=== PATIENT | male | born 1990 | race Caucasian/White ===

== ENCOUNTER 2016-06-03 01:16 | Emergency (ER) | payer OTHER ==
[~2016-06-03] VITALS: Ht 185.4 cm; Wt 75.0 kg
[~2016-06-03 01:16] MED LIST: PARO10S PO; SERO100T PO; ZYPR10TA PO; ZYPR10TA9 PO
[2016-06-03] MEDS ORDERED: SERO400T PO (01:29)
[2016-06-03] MEDS ORDERED: ZYPR10TA PO (01:29)
[2016-06-03] MEDS ORDERED: PAXI10TA2 PO (01:29)
[2016-06-03 01:33] VITALS: BP 118/58; PULSE 68; RESP 16; TEMP 98; O2SAT 98
[2016-06-03 01:48] LABS: AUTOMATED NEUTROPHIL # 1.9 TH/MM3 (1.8-7.7); BASOPHIL % 0.7 % (0.0-2.0); EOSINOPHIL # 0.4 TH/MM3 (0-0.4); EOSINOPHIL % 8.4 % (0.0-4.0); HEMATOCRIT 39.4 % (39.0-51.0); HEMO FLAGS DIFF FINAL; LYMPH % 46.8 % (9.0-44.0); LYMPHOCYTE # 2.4 TH/MM3 (1.0-4.8); MEAN CELL VOLUME 91.4 FL (80.0-100.0); MEAN CORPUSCULAR HEMOGLOBIN 32.7 PG (27.0-34.0); MEAN CORPUSCULAR HGB CONC 35.7 % (32.0-36.0); MONO % 7.4 % (0.0-8.0); NEUT % 36.7 % (16.0-70.0); PLATELET COUNT 196 TH/MM3 (150-450); RED BLOOD COUNT 4.32 MIL/MM3 (4.50-5.90); RED CELL DISTRIBUTION WIDTH 12.4 % (11.6-17.2); WHITE BLOOD COUNT 5.2 TH/MM3 (4.0-11.0)
[2016-06-03 02:03] LABS: ALT (GPT) 43 U/L (12-78); ANION GAP 7 MEQ/L (5-15); AST (GOT) 17 U/L (15-37); BLOOD UREA NITROGEN 13 MG/DL (7-18); CHLORIDE 108 MEQ/L (98-107); GLOMERULAR FILTRATION RATE 105 ML/MIN (>89); POTASSIUM 3.7 MEQ/L (3.5-5.1); SODIUM (NA) 143 MEQ/L (136-145)
[2016-06-03 02:05] LABS: ALKALINE PHOSPHATASE 69 U/L (45-117); TOTAL BILIRUBIN ADULT 0.2 MG/DL (0.2-1.0)
[2016-06-03 02:25] LABS: AMPHETAMINE, URINE POS (NEG); BARBITURATES, URINE NEG (NEG); COCAINE, URINE NEG (NEG)
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
[2016-06-03] MEDS ORDERED: OLANZapine IM 10 MG VIAL IM ONE (02:45)
[2016-06-03 03:08] VITALS: BP 131/65; PULSE 71; RESP 18
[2016-06-03 06:29] VITALS: BP 120/64; PULSE 75; RESP 18; O2SAT 97
[2016-06-03 11:12] VITALS: BP 107/57; PULSE 69; RESP 18; O2SAT 99
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
[2016-06-03] MEDS ORDERED: OLANZapine 10 MG TAB PO SCH (21:00)
[2016-06-03 22:24] VITALS: BP 122/56; PULSE 70; RESP 18; O2SAT 97
[2016-06-04 01:57] VITALS: BP 123/58; PULSE 72; RESP 18; O2SAT 100
[2016-06-04 06:36] VITALS: BP 100/53; PULSE 61; RESP 18; TEMP 98.3; O2SAT 98
[2016-06-04 10:38] VITALS: BP 136/63; PULSE 61; RESP 16; O2SAT 99
[2016-06-04 14:52] VITALS: BP 118/60; PULSE 72; RESP 18; TEMP 97.8; O2SAT 97
[2016-06-04 16:33] VITALS: BP 141/73; PULSE 72; RESP 18; TEMP 97.3; O2SAT 95
== END 2016-06-04 17:11 ==
LOC: NEPA 01:16 → NEPJ 06-04 17:11
DX: F25.0 Schizoaffective disorder, bipolar type (principal); F19.20 Other psychoactive substance dependence, uncomplicated; J45.909 Unspecified asthma, uncomplicated; F17.210 Nicotine dependence, cigarettes, uncomplicated
CPT/HCPCS: 80053; 80307; 80320; 85025; 96372

== ENCOUNTER 2016-06-10 23:28 | Emergency (ER) | payer OTHER ==
[~2016-06-10 23:28] MED LIST changes: -PARO10S PO; +PAXI10TA2 PO; -SERO100T PO; +SERO400T PO; -ZYPR10TA9 PO
[2016-06-10 23:33] VITALS: BP 132/86; PULSE 93; RESP 18; TEMP 97.8; O2SAT 99
[2016-06-11] MEDS ORDERED: HALOPERIDOL LACTATE 5 MG/ML AMP IM ONE (03:00)
[2016-06-11] MEDS ORDERED: diphenhydrAMINE HCL 50 MG/ML VIAL IM ONE (03:00)
[2016-06-11 03:25] VITALS: BP 133/81; PULSE 97; RESP 22; TEMP 98.9; O2SAT 99
[2016-06-11 03:28] LABS: AUTOMATED NEUTROPHIL # 3.7 TH/MM3 (1.8-7.7); BASOPHIL % 0.6 % (0.0-2.0); EOSINOPHIL # 0.5 TH/MM3 (0-0.4); HEMATOCRIT 39.3 % (39.0-51.0); HEMO FLAGS DIFF FINAL; LYMPH % 28.5 % (9.0-44.0); MEAN CELL VOLUME 91.8 FL (80.0-100.0); MEAN CORPUSCULAR HEMOGLOBIN 32.6 PG (27.0-34.0); MEAN CORPUSCULAR HGB CONC 35.5 % (32.0-36.0); MONO % 11.4 % (0.0-8.0); NEUT % 52.5 % (16.0-70.0); PLATELET COUNT 207 TH/MM3 (150-450); RED BLOOD COUNT 4.28 MIL/MM3 (4.50-5.90); RED CELL DISTRIBUTION WIDTH 12.6 % (11.6-17.2); WHITE BLOOD COUNT 7.1 TH/MM3 (4.0-11.0)
--- NOTE | 2016-06-11 03:51 | RADRPT ---
EXAM DATE/TIME: 06/11/2016 03:30 [facility] COMPARISON: No previous studies available for comparison. INDICATIONS : Lower back pain after fall. MEDICAL HISTORY : None. SURGICAL HISTORY : None. ENCOUNTER: Initial ACUITY: 1 day PAIN SCORE: 5/10 LOCATION: Bilateral lower back. FINDINGS: Two view examination was performed. There are five non-rib bearing vertebral bodies. The vertebral bodies are in normal alignment without evidence of subluxation or scoliosis. The disc spaces are lucia ntained. The pedicles are intact. Bony mineralization is normal. No fracture is identified. CONCLUSION: Unremarkable exam. Ed Cooley MD on June 11, 2016 at 3:49 Board Certified Radiologist. This report was verified electronically.
--- NOTE | 2016-06-11 03:51 | RADRPT ---
EXAM DATE/TIME: 06/11/2016 03:29 [facility] COMPARISON: No previous studies available for comparison. INDICATIONS : Upper back pain after fall. MEDICAL HISTORY : None. SURGICAL HISTORY : None. ENCOUNTER: Initial ACUITY: 1 day PAIN SCORE: 5/10 LOCATION: Bilateral thoracic. FINDINGS: There is normal alignment of the thoracic vertebral bodies. Vertebral body height is maintained. No evidence of fracture or subluxation. Pedicles are intact at all levels. The paravertebral reflecti ons are not thickened. CONCLUSION: Unremarkable exam. Ed Cooley MD on June 11, 2016 at 3:49 Board Certified Radiologist. This report was verified electronically.
[2016-06-11 03:59] LABS: ALT (GPT) 65 U/L (12-78); ANION GAP 7 MEQ/L (5-15); AST (GOT) 44 U/L (15-37); BLOOD UREA NITROGEN 15 MG/DL (7-18); CHLORIDE 107 MEQ/L (98-107); GLOMERULAR FILTRATION RATE 91 ML/MIN (>89); POTASSIUM 3.5 MEQ/L (3.5-5.1); SODIUM (NA) 142 MEQ/L (136-145)
[2016-06-11 04:01] LABS: ALKALINE PHOSPHATASE 68 U/L (45-117); TOTAL BILIRUBIN ADULT 0.7 MG/DL (0.2-1.0)
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
--- NOTE | 2016-06-11 04:43 | RADRPT ---
EXAM DATE/TIME: 06/11/2016 04:20 [facility] COMPARISON: CT BRAIN W/O CONTRAST, September 10, 2015, 22:03. INDICATIONS : Fall, contusion to forehead. RADIATION DOSE: 42.06 CTDIvol (mGy) MEDICAL HISTORY : None SURGICAL HISTORY : None. ENCOUNTER: Initial ACUITY: 1 day PAIN SCALE: 0/10 LOCATION: cranial TECHNIQUE: Multiple contiguous axial images were obtained of the head. Using automated exposure control and adj ustment of the mA and/or kV according to patient size, radiation dose was kept as low as reasonably a chievable to obtain optimal diagnostic quality images. FINDINGS: CEREBRUM: The ventricles are normal for age. No evidence of midline shift, mass lesion, hemorrhage or acute in farction. No extra-axial fluid collections are seen. POSTERIOR FOSSA: The cerebellum and brainstem are intact. The 4th ventricle is midline. The cerebellopontine angle i s unremarkable. EXTRACRANIAL: The visualized portion of the orbits is intact. Tiny foreign body in the soft tissues along the right forehead. This was present on the prior study and remains unchanged. There is soft tissue swelling a long the mid forehead. SKULL: The calvaria is intact. No evidence of skull fracture. CONCLUSION: 1. Unremarkable and stable CT scan of the brain compared to the prior study. 2. Stable tiny foreign body in the soft tissues along the right forehead. 3. Soft tissue swelling right forehead. Ed Cooley MD on June 11, 2016 at 4:40 Board Certified Radiologist. This report was verified electronically.
--- NOTE | 2016-06-11 04:48 | RADRPT ---
EXAM DATE/TIME: 06/11/2016 04:20 [place] COMPARISON: CT CERVICAL SPINE W/O CONTRAST, January 19, 2015, 14:15. INDICATIONS : Fall, neck pain. RADIATION DOSE: 25.52 CTDIvol (mGy) MEDICAL HISTORY : None SURGICAL HISTORY : None. ENCOUNTER: Initial ACUITY: 1 day PAIN SCALE: 0/10 LOCATION: neck TECHNIQUE: Volumetric scanning of the cervical spine was performed. Multiplanar reconstructions in the sagittal, coronal and oblique axial planes were performed. Using automated exposure control and adjustment o f the mA and/or kV according to patient size, radiation dose was kept as low as reasonably achievable to obtain optimal diagnostic quality images. FINDINGS: VERTEBRAE: Normal vertebral body height. No acute bony fracture. There is evidence of reversed lordosis. This is stable compared to the prior study. There continues to be some mild curvature of the cervical spine to the left. Stable compared to prior study. No significant extradural defects are seen in the spinal canal. The neural foramina appear patent. ALIGNMENT: No evidence of subluxation. Compared to the prior exam from 2014 there are no new or significant changes with the overall appeara nce of the cervical spine. CONCLUSION: Stable CT scan of the cervical spine compared to the prior study. Ed Cooley MD on June 11, 2016 at 4:42 Board Certified Radiologist. This report was verified electronically.
[2016-06-11 08:00] VITALS: BP 131/79; PULSE 80; RESP 16; O2SAT 98
[2016-06-11 12:20] VITALS: BP 127/81; PULSE 77; RESP 14; O2SAT 99
[2016-06-11 17:18] LABS: AMPHETAMINE, URINE POS (NEG); BARBITURATES, URINE NEG (NEG); COCAINE, URINE NEG (NEG)
[2016-06-11 18:59] VITALS: BP 102/57; PULSE 68; RESP 18; O2SAT 97
== END 2016-06-11 19:44 ==
LOC: NEPE 23:28 → NEPJ 06-11 19:44
DX: F23 Brief psychotic disorder (principal); S00.83XA Contusion of other part of head, initial encounter; R51 Headache; M54.2 Cervicalgia; M54.5 Low back pain; R45.1 Restlessness and agitation; F17.200 Nicotine dependence, unspecified, uncomplicated; Z87.09 Personal history of other diseases of the respiratory system; Z86.69 Personal history of other diseases of the nervous system and sense organs; Z86.59 Personal history of other mental and behavioral disorders; X58.XXXA Exposure to other specified factors, initial encounter
CPT/HCPCS: 70450; 72072; 72100; 72125; 80053; 80307; 80320; 85025; 96372; 99284; J1200; J1630

== ENCOUNTER 2016-06-16 18:05 | Inpatient (IN) | payer OTHER ==
[~2016-06-16] VITALS: Ht 185.4 cm; Wt 106.3 kg
--- NOTE | 2016-06-16 18:39 | PD ---
HPI Chief Complaint: psychiatric evaluation Time Seen by Provider: 18:37 Travel History International Travel<30 days: No Contact w/Intl Traveler<30days: No History of Present Illness HPI Patient comes in under an ex parte for psychiatric evaluation. Patient states he has been feeling very stressed and does not feel like he is on the correct meds. Patient denies any medical complaints currently other than stress. Denies any chest pain, shortness of breath, fever, abdominal pain, or loss change in bowel or bladder. Denies any homicidal or suicidal ideations. PFSH Past Medical History Anxiety: Yes Depression: Yes Diminished Hearing: No Psychiatric: Yes (Schizoaffective Disorder) Respiratory: Yes (ASTHMA) Immunizations Current: Yes Schizophrenia: Yes Past Surgical History Eye Surgery: Yes (LEFT EYE) Social History Alcohol Use: No (Denies.) Tobacco Use: Yes (1 PPD) Substance Use: Yes (States drug of choice is Meth. ) Allergies-Medications (Allergen,Severity, Reaction): Coded Allergies: Milk (Verified Allergy, Severe, 06/16/16) Lactose (Verified Allergy, Unknown, 06/16/16) Lactose Intollerant per paperwork from [facility]. Uncoded Allergies: Fish (Allergy, Unknown, 06/11/16) No Fish, per paperwork sent by [facility]. Reported Meds & Prescriptions Reported Meds & Active Scripts Active Reported Paxil (Paroxetine HCl) 10 Mg Tab 10 Mg PO DAILY Seroquel (Quetiapine Fumarate) 400 Mg Tab 400 Mg PO HS Zyprexa (Olanzapine) 10 Mg Tab 10 Mg PO HS Review of Systems Except as stated in HPI: all other systems reviewed are Neg Physical Exam Narrative GENERAL: Well-developed, overly nourished, in no acute distress, and non-ill appearing. SKIN: Warm and dry. HEAD: Atraumatic. Normocephalic. EYES: Pupils equal and round. EOMI. No scleral icterus. No injection or drainage. ENT: No nasal bleeding or discharge. Mucous membranes pink and moist. NECK: Trachea midline. Supple. No nuclear rigidity. CARDIOVASCULAR: Regular rate and rhythm. No murmur appreciated. RESPIRATORY: No accessory muscle use. No respiratory distress. Clear to auscultation. Breath sounds equal bilaterally. MUSCULOSKELETAL: No obvious deformities. No clubbing. No cyanosis. No edema. Full range of motion. NEUROLOGICAL: Awake and alert. No obvious cranial nerve deficits. Motor grossly within normal limits. Normal speech. PSYCHIATRIC: Appropriate mood and affect. Data Data Last Documented VS Vital Signs Date Time Temp Pulse Resp B/P Pulse Ox O2 Delivery O2 Flow Rate FiO2 06/16/16 19:28 98 06/16/16 19:27 15 139/84 98 Room Air 06/16/16 19:00 97.9 Orders Complete Blood Count With Diff (06/16/16 18:35) Comprehensive Metabolic Panel (06/16/16 18:35) Drug Screen, Random Urine (06/16/16 18:35) Alcohol (Ethanol) (06/16/16 18:35) Salicylates (Aspirin) (06/16/16 18:35) Tylenol (Acetaminophen) (06/16/16 18:35) Psych Screen (06/16/16 18:35) Labs Laboratory Tests Test 06/16/16 06/16/16 19:00 19:05 Urine Opiates Screen NEG Urine Barbiturates Screen NEG Urine Amphetamines Screen POS Urine Benzodiazepines Screen NEG Urine Cocaine Screen NEG Urine Cannabinoids Screen NEG White Blood Count 7.8 TH/MM3 Red Blood Count 4.83 MIL/MM3 Hemoglobin 15.8 GM/DL Hematocrit 44.9 % Mean Corpuscular Volume 92.9 FL Mean Corpuscular Hemoglobin 32.6 PG Mean Corpuscular Hemoglobin 35.2 % Concent Red Cell Distribution Width 12.7 % Platelet Count 255 TH/MM3 Mean Platelet Volume 8.8 FL Neutrophils (%) (Auto) 60.7 % Lymphocytes (%) (Auto) 26.5 % Monocytes (%) (Auto) 7.7 % Eosinophils (%) (Auto) 4.4 % Basophils (%) (Auto) 0.7 % Neutrophils # (Auto) 4.7 TH/MM3 Lymphocytes # (Auto) 2.1 TH/MM3 Monocytes # (Auto) 0.6 TH/MM3 Eosinophils # (Auto) 0.3 TH/MM3 Basophils # (Auto) 0.1 TH/MM3 CBC Comment DIFF FINAL Differential Comment Sodium Level 139 MEQ/L Potassium Level 3.8 MEQ/L Chloride Level 101 MEQ/L Carbon Dioxide Level 27.3 MEQ/L Anion Gap 11 MEQ/L Blood Urea Nitrogen 20 MG/DL Creatinine 1.05 MG/DL Estimat Glomerular Filtration 85 ML/MIN Rate Random Glucose 86 MG/DL Calcium Level 9.3 MG/DL Total Bilirubin 0.5 MG/DL Aspartate Amino Transf 25 U/L (AST/SGOT) Alanine Aminotransferase 58 U/L (ALT/SGPT) Alkaline Phosphatase 80 U/L Total Protein 7.9 GM/DL Albumin 4.9 GM/DL Salicylates Level 5.5 MG/DL Acetaminophen Level LESS THAN 2.0 MCG/ML Ethyl Alcohol Level LESS THAN 3 MG/DL MDM Medical Decision Making Medical Screen Exam Complete: Yes Emergency Medical Condition: Yes Differential Diagnosis Schizophrenia, substance abuse, acute psychosis, amphetamine abuse, drug induced psychosis, other Narrative Course Patient was seen and examined. Labs were obtained and reviewed. Patient medically cleared for further treatment and evaluation by psych. Final disposition per psych. Diagnosis Primary Impression: Schizoaffective disorder Qualified Code: F25.9 - Schizoaffective disorder, unspecified type Condition: Stable Eudardo Adrian Jun 16, 2016 18:39
[2016-06-16 19:00] VITALS: BP 138/73; PULSE 98; RESP 16; TEMP 97.9; O2SAT 100
[2016-06-16 19:24] LABS: AUTOMATED NEUTROPHIL # 4.7 TH/MM3 (1.8-7.7); BASOPHIL # 0.1 TH/MM3 (0-0.2); BASOPHIL % 0.7 % (0.0-2.0); EOSINOPHIL # 0.3 TH/MM3 (0-0.4); EOSINOPHIL % 4.4 % (0.0-4.0); HEMATOCRIT 44.9 % (39.0-51.0); HEMO FLAGS DIFF FINAL; LYMPH % 26.5 % (9.0-44.0); LYMPHOCYTE # 2.1 TH/MM3 (1.0-4.8); MEAN CELL VOLUME 92.9 FL (80.0-100.0); MEAN CORPUSCULAR HEMOGLOBIN 32.6 PG (27.0-34.0); MEAN CORPUSCULAR HGB CONC 35.2 % (32.0-36.0); MONO % 7.7 % (0.0-8.0); NEUT % 60.7 % (16.0-70.0); PLATELET COUNT 255 TH/MM3 (150-450); RED BLOOD COUNT 4.83 MIL/MM3 (4.50-5.90); RED CELL DISTRIBUTION WIDTH 12.7 % (11.6-17.2); WHITE BLOOD COUNT 7.8 TH/MM3 (4.0-11.0)
[2016-06-16 19:27] VITALS: BP 139/84; PULSE 90; RESP 15; O2SAT 98
[2016-06-16 19:31] LABS: AMPHETAMINE, URINE POS (NEG); BARBITURATES, URINE NEG (NEG); COCAINE, URINE NEG (NEG)
[2016-06-16 19:39] LABS: ANION GAP 11 MEQ/L (5-15)
[2016-06-16 19:47] LABS: ACETAMINOPHEN LESS THAN 2.0 MCG/ML (10.0-30.0); ALKALINE PHOSPHATASE 80 U/L (45-117); ALT (GPT) 58 U/L (12-78); AST (GOT) 25 U/L (15-37); BICARBONATE 27.3 MEQ/L (21.0-32.0); BLOOD UREA NITROGEN 20 MG/DL (7-18); CHLORIDE 101 MEQ/L (98-107); GLOMERULAR FILTRATION RATE 85 ML/MIN (>89); POTASSIUM 3.8 MEQ/L (3.5-5.1); SODIUM (NA) 139 MEQ/L (136-145); TOTAL BILIRUBIN ADULT 0.5 MG/DL (0.2-1.0)
--- NOTE | 2016-06-16 20:35 | PD ---
Physical Exam Date Seen by Provider: Jun 16, 2016 Data Data Last Documented VS Vital Signs Date Time Temp Pulse Resp B/P Pulse Ox O2 Delivery O2 Flow Rate FiO2 06/16/16 19:28 98 06/16/16 19:27 15 139/84 98 Room Air 06/16/16 19:00 97.9 Orders Complete Blood Count With Diff (06/16/16 18:35) Comprehensive Metabolic Panel (06/16/16 18:35) Drug Screen, Random Urine (06/16/16 18:35) Alcohol (Ethanol) (06/16/16 18:35) Salicylates (Aspirin) (06/16/16 18:35) Tylenol (Acetaminophen) (06/16/16 18:35) Psych Screen (06/16/16 18:35) Labs Laboratory Tests Test 06/16/16 06/16/16 19:00 19:05 Urine Opiates Screen NEG Urine Barbiturates Screen NEG Urine Amphetamines Screen POS Urine Benzodiazepines Screen NEG Urine Cocaine Screen NEG Urine Cannabinoids Screen NEG White Blood Count 7.8 TH/MM3 Red Blood Count 4.83 MIL/MM3 Hemoglobin 15.8 GM/DL Hematocrit 44.9 % Mean Corpuscular Volume 92.9 FL Mean Corpuscular Hemoglobin 32.6 PG Mean Corpuscular Hemoglobin 35.2 % Concent Red Cell Distribution Width 12.7 % Platelet Count 255 TH/MM3 Mean Platelet Volume 8.8 FL Neutrophils (%) (Auto) 60.7 % Lymphocytes (%) (Auto) 26.5 % Monocytes (%) (Auto) 7.7 % Eosinophils (%) (Auto) 4.4 % Basophils (%) (Auto) 0.7 % Neutrophils # (Auto) 4.7 TH/MM3 Lymphocytes # (Auto) 2.1 TH/MM3 Monocytes # (Auto) 0.6 TH/MM3 Eosinophils # (Auto) 0.3 TH/MM3 Basophils # (Auto) 0.1 TH/MM3 CBC Comment DIFF FINAL Differential Comment Sodium Level 139 MEQ/L Potassium Level 3.8 MEQ/L Chloride Level 101 MEQ/L Carbon Dioxide Level 27.3 MEQ/L Anion Gap 11 MEQ/L Blood Urea Nitrogen 20 MG/DL Creatinine 1.05 MG/DL Estimat Glomerular Filtration 85 ML/MIN Rate Random Glucose 86 MG/DL Calcium Level 9.3 MG/DL Total Bilirubin 0.5 MG/DL Aspartate Amino Transf 25 U/L (AST/SGOT) Alanine Aminotransferase 58 U/L (ALT/SGPT) Alkaline Phosphatase 80 U/L Total Protein 7.9 GM/DL Albumin 4.9 GM/DL Salicylates Level 5.5 MG/DL Acetaminophen Level LESS THAN 2.0 MCG/ML Ethyl Alcohol Level LESS THAN 3 MG/DL MDM Medical Record Reviewed: Yes Supervised Visit with EVELYNE: Yes Narrative Course I, Dr. Wooten, have reviewed the advance practice practitioner's documentation and am in agreement, met with the patient face to face, made the diagnosis, and the medical decision making was done by me. *My assessment and Findings: Patient presents to ER under Ex Parte, patient reports that he has been very stressed out lately. Patient reports that he was told to come to the emergency room for psychiatric evaluation. Patient currently with no suicidal or homicidal ideations. Diagnosis Primary Impression: Schizoaffective disorder Qualified Code: F25.9 - Schizoaffective disorder, unspecified type Condition: Stable Karlene Wooten DO Jun 16, 2016 20:34
[2016-06-16 23:41] VITALS: BP 162/92; PULSE 95; RESP 19; TEMP 97.6; O2SAT 96
[2016-06-17 02:13] VITALS: BP 132/69; PULSE 84; RESP 18; O2SAT 99
[2016-06-17] MEDS ORDERED: OLANZapine 10 MG TAB PO ONE (05:30)
[2016-06-17 06:46] VITALS: BP 112/64; PULSE 70; RESP 18; TEMP 97.5; O2SAT 98
[2016-06-17] MEDS ORDERED: LORazepam 2 MG TAB PO ONE (13:00)
[2016-06-17 14:40] VITALS: BP 115/58; PULSE 66; RESP 17; O2SAT 98
[2016-06-17] MEDS ORDERED: BENZTROPINE MESYLATE 2 MG/2 ML VIAL IM PRN (15:45)
[2016-06-17] MEDS: NICOTINE 21 MG/24 HR PATCH T-DERMAL SCH (15:45)
[2016-06-17] MEDS ORDERED: ACETAMINOPHEN 325 MG TAB PO PRN (15:45)
[2016-06-17] MEDS ORDERED: ALUMINUM/MAGNESIUM/SIMETH 30 ML CUP PO PRN (15:45)
[2016-06-17] MEDS ORDERED: BENZTROPINE MESYLATE 1 MG TAB PO PRN (15:45)
[2016-06-17] MEDS ORDERED: MAGNESIUM HYDROXIDE SUSP 30 ML CUP PO PRN (15:45)
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
[2016-06-17 16:50] VITALS: BP 129/87; PULSE 82; RESP 18; TEMP 98.5; O2SAT 97
[2016-06-17] MEDS: hydrOXYzine HCL 50 MG TAB PO PRN (18:04)
[2016-06-17] MEDS: QUEtiapine FUMARATE 100 MG TAB PO SCH (21:00)
[2016-06-17] MEDS: diphenhydrAMINE HCL 50 MG CAP PO PRN (22:17)
[2016-06-18 06:48] VITALS: BP 136/78; PULSE 96; RESP 18; TEMP 97.6; O2SAT 98
[2016-06-18 08:21] LABS: HDL CHOLESTEROL 57.6 MG/DL (40.0-60.0); LDL CHOLESTEROL 81 MG/DL (0-99)
[2016-06-18] MEDS: QUEtiapine FUMARATE 100 MG TAB PO SCH ×3 (09:00→21:04)
[2016-06-18] MEDS: REMOVE OLD PATCH T-DERMAL SCH (09:00)
[2016-06-18] MEDS: hydrOXYzine HCL 50 MG TAB PO PRN ×3 (09:04→21:19)
[2016-06-18] MEDS: NICOTINE 21 MG/24 HR PATCH T-DERMAL SCH (09:05)
[2016-06-18] MEDS ORDERED: PNEUMOCOCCAL POLYVALENT INJ 25 MCG/0.5 ML SYR IM ONE (10:00)
[2016-06-18] MEDS ORDERED: INFLUENZA VIRUS VACCINE (QUADRIVALENT) 0.5 ML SYR IM ONE (10:00)
--- NOTE | 2016-06-18 10:38 | HHI.PYPN ---
Subjective Remarks Patient seen and examined with counselor. Chart reviewed. Case discussed with nursing staff. On my examination today, patient seems fairly sleepy although he is able to participate in interview. I ask if he feels overmedicated but he insists that he does not and in fact requests that we titrate his Seroquel. I have explained that this would likely increase his sedation, but the patient feels strongly in favor of a titration of this medication, especially at HS, to target psychotic symptoms. Endorses ongoing AH of "a lot of stuff" but does not describe any CAH. He denies SI/HI. Med-seeking for Ativan. We agree to work on a scheduled, non-habit forming anxiolytic but the patient wants to prioritize titrating Seroquel today. Denies side effects from medications except as above. Review of Systems Other No somatic complaints. Objective Alert: Yes [place]: Person, Place, Date Mood: Anxious Affect: Flat Memory Intact: Comment (Intact on clinical exam) Hallucinations: Auditory (as above) Delusions: No Delusion Type: Other (No delusions) Suicidal: Ideation (Denies SI) Homicidal: Ideation (Denies HI) Insight/Judgement Fair Remarks No motoric abnormalities noted. Thought process linear. Speech within a little slow but otherwise within normal limits for tone and volume. Labs Test 06/18/16 07:22 Triglycerides Level 57 MG/DL Cholesterol Level 150 MG/DL LDL Cholesterol 81 MG/DL HDL Cholesterol 57.6 MG/DL Cholesterol/HDL Ratio 2.60 RATIO Labs reviewed. Vitals/IOs Vital Signs Date Time Temp Pulse Resp B/P Pulse Ox O2 Delivery O2 Flow Rate FiO2 06/18/16 06:48 97.6 96 18 136/78 98 06/17/16 06:46 Room Air Assessment & Plan Problem List: (1) Schizoaffective disorder ICD Code: F25.9 (2) Amphetamine abuse ICD Code: F15.10 Assessment & Plan Titrate Seroquel to 100/150mg per patient preference. Hold Seroquel for sedation. Continue other medications as ordered but to consider, e.g. gabapentin, for anxiety. Continue other care as ordered. Justification for Cont. Inpt. Impairments in reality construction. Risk for decompensation. Medication changes. Discharge Planning Pending psychiatric stabilization Problem Qualifiers (1) Schizoaffective disorder: Qualified Code: F25.0 - Schizoaffective disorder, bipolar type Jorge Poe MD Jun 18, 2016 10:38
[2016-06-18 15:57] LABS: HEMOGLOBIN A1a 1.1 %; HEMOGLOBIN A1b 0.8 %; HEMOGLOBIN Ao 86.9 %; HEMOGLOBIN F 1.3 %; HEMOGLOBIN LA1C 1.8 %; HEMOGLOBIN P3 3.2 %
[2016-06-18] MEDS: diphenhydrAMINE HCL 50 MG CAP PO PRN (21:04)
[2016-06-18 21:51] VITALS: BP 130/70; PULSE 88; RESP 18; TEMP 97.3; O2SAT 95
[2016-06-19 05:48] VITALS: BP 114/76; PULSE 102; RESP 20; TEMP 97.4; O2SAT 99
[2016-06-19] MEDS: hydrOXYzine HCL 50 MG TAB PO PRN ×4 (07:10→23:31)
[2016-06-19] MEDS: NICOTINE 21 MG/24 HR PATCH T-DERMAL SCH (07:51)
[2016-06-19] MEDS: QUEtiapine FUMARATE 100 MG TAB PO SCH ×2 (07:51→20:26)
[2016-06-19] MEDS: REMOVE OLD PATCH T-DERMAL SCH (09:00)
--- NOTE | 2016-06-19 12:33 | HHI.PYPN ---
Subjective Remarks Patient seen and examined. Chart reviewed. Case discussed with nursing staff. On my examination today, patient continues to complain of some cough and cold symptoms. He describes in particular some mild pharyngitis. He denies any SI, HI or AVH. Anxiety level lessening. Patient is pleased with being back on Seroquel. Denies any side effects from medications. Review of Systems Other As above, otherwise no somatic complaints. Objective Alert: Yes [place]: Person, Place, Date Mood: Other (calmer) Affect: Blunted Memory Intact: Comment (Intact on clinical exam) Hallucinations: Other (denies AVH) Delusions: No Delusion Type: Other (No delusions) Suicidal: Ideation (Denies SI) Homicidal: Ideation (Denies HI) Insight/Judgement Fair Remarks Thought process linear. No motoric abnormalities noted. Labs Labs reviewed. No new labs. Vitals/IOs Vital Signs Date Time Temp Pulse Resp B/P Pulse Ox O2 Delivery O2 Flow Rate FiO2 06/19/16 05:48 97.4 102 20 114/76 99 06/17/16 06:46 Room Air Assessment & Plan Problem List: (1) Schizoaffective disorder ICD Code: F25.9 (2) Amphetamine abuse ICD Code: F15.10 Assessment & Plan Patient's somatic complaints are likely indeed related to mild URI, but antipsychotics themselves can sometimes cause rhinitis and pharyngitis and it does seem that patient's physical complaints again after reinitiation of the Seroquel. I will continue current dose of Seroquel for now and monitor. Symptomatic treatment for his physical complaints. I did offer the patient the general medical consultation but he has declined and I do not think that his physical symptoms are so severe as to necessitate a medical consultation at this time. Continue other medications and care as ordered. Justification for Cont. Inpt. Complicating conditions. Anticipate possible ongoing medication adjustments. Discharge Planning Pending psychiatric stabilization. Problem Qualifiers (1) Schizoaffective disorder: Qualified Code: F25.0 - Schizoaffective disorder, bipolar type Jorge Poe MD Jun 19, 2016 12:33
[2016-06-19] MEDS: diphenhydrAMINE HCL 50 MG CAP PO PRN ×2 (15:01→21:20)
[2016-06-19 18:21] VITALS: BP 142/75; PULSE 91; RESP 18; TEMP 96.7; O2SAT 99
[2016-06-20 06:14] VITALS: BP 143/68; PULSE 89; RESP 20; TEMP 98.6; O2SAT 96
[2016-06-20] MEDS: REMOVE OLD PATCH T-DERMAL SCH (09:00)
[2016-06-20] MEDS: hydrOXYzine HCL 50 MG TAB PO PRN ×2 (09:38→15:44)
[2016-06-20] MEDS: NICOTINE 21 MG/24 HR PATCH T-DERMAL SCH (09:38)
[2016-06-20] MEDS: QUEtiapine FUMARATE 100 MG TAB PO SCH ×2 (09:38→20:17)
[2016-06-20] MEDS: MENTHOL LOZENGE BUCCAL PRN ×2 (10:20→21:19)
--- NOTE | 2016-06-20 12:00 | HHI.PYPN ---
Subjective Remarks Patient seen and examined with nursing staff. Chart reviewed. Case discussed with nurse who reports that the patient continued to complain of some URI symptoms yesterday. He was mostly in bed throughout the day yesterday although he did come out in the later evening. On my examination today, the patient continues to complain of some URI symptoms. He denies that he had this problem when he was on Seroquel in the past and doesn't think that it is related. He reports that his anxiety level is improving although his sleep remains somewhat poor. He requests that we titrate his Seroquel over the weekend. No SI or HI. Denies side effects from medications. Review of Systems Other Besides the above, no somatic complaints. Objective Alert: Yes [place]: Person, Place, Date Mood: Other (anxiety reducing) Affect: Blunted Memory Intact: Comment (remains intact) Hallucinations: Other (no audiovisual hallucinations) Delusions: No Delusion Type: Other (no delusional beliefs) Suicidal: Ideation (no suicidal ideation) Homicidal: Ideation (no homicidal ideation) Insight/Judgement Fair Remarks No motoric abnormalities noted. Thought process linear. Speech within normal limits for rate, tone and volume. Labs Labs reviewed. No new labs. Vitals/IOs Vital Signs Date Time Temp Pulse Resp B/P Pulse Ox O2 Delivery O2 Flow Rate FiO2 06/20/16 06:14 98.6 89 20 143/68 96 06/17/16 06:46 Room Air Assessment & Plan Problem List: (1) Schizoaffective disorder ICD Code: F25.9 (2) Amphetamine abuse ICD Code: F15.10 Assessment & Plan Titrate nighttime dose Seroquel over the weekend. Continue other medications and care as ordered. Justification for Cont. Inpt. Medication changes in process. Discharge Planning Pending psychiatric stabilization. Possible discharge after the weekend. Request HC Surrog/Guard Advoc?: No Problem Qualifiers (1) Schizoaffective disorder: Qualified Code: F25.0 - Schizoaffective disorder, bipolar type Jorge Poe MD Jun 20, 2016 12:00
[2016-06-20 19:40] VITALS: BP 122/70; PULSE 93; RESP 18; TEMP 98.7; O2SAT 98
[2016-06-20] MEDS: diphenhydrAMINE HCL 50 MG CAP PO PRN (21:19)
[2016-06-21 05:25] VITALS: BP 140/74; PULSE 86; RESP 18; TEMP 97.7; O2SAT 96
[2016-06-21] MEDS: REMOVE OLD PATCH T-DERMAL SCH (09:00)
[2016-06-21] MEDS: NICOTINE 21 MG/24 HR PATCH T-DERMAL SCH (09:36)
[2016-06-21] MEDS: QUEtiapine FUMARATE 100 MG TAB PO SCH ×2 (09:36→21:32)
[2016-06-21] MEDS: hydrOXYzine HCL 50 MG TAB PO PRN ×3 (09:36→21:32)
--- NOTE | 2016-06-21 12:35 | HHI.PYPN ---
Subjective Remarks Pt seen and discussed with staff. Pt has been isolative to room, remaining in bed for most of day. He is compliant with treatment. No SI/HI. He denies side effects. Objective Alert: Yes [place]: Person, Place, Date Mood: Other (anxiety reducing) Affect: Blunted Memory Intact: Comment (remains intact) Hallucinations: Other (no audiovisual hallucinations) Delusions: No Delusion Type: Other (no delusional beliefs) Suicidal: Ideation (no suicidal ideation) Homicidal: Ideation (no homicidal ideation) Insight/Judgement poor Vitals/IOs Vital Signs Date Time Temp Pulse Resp B/P Pulse Ox O2 Delivery O2 Flow Rate FiO2 06/21/16 05:25 97.7 86 18 140/74 96 Assessment & Plan Problem List: (1) Schizoaffective disorder ICD Code: F25.9 (2) Amphetamine abuse ICD Code: F15.10 Assessment & Plan Continue current tx plan. Estimated LOS: days Justification for Cont. Inpt. impairments in safety Request HC Surrog/Guard Advoc?: No Problem Qualifiers (1) Schizoaffective disorder: Qualified Code: F25.0 - Schizoaffective disorder, bipolar type Latia Griffith MD Jun 21, 2016 12:34
[2016-06-21 19:43] VITALS: BP 117/75; PULSE 98; RESP 18; TEMP 97.2; O2SAT 95
[2016-06-21] MEDS: diphenhydrAMINE HCL 50 MG CAP PO PRN (21:28)
[2016-06-22 05:21] VITALS: BP 137/75; PULSE 100; RESP 18; TEMP 98.1
[2016-06-22] MEDS: REMOVE OLD PATCH T-DERMAL SCH (09:00)
[2016-06-22 09:45] VITALS: BP 237/75; PULSE 100; RESP 18; TEMP 98.1; O2SAT 97
[2016-06-22] MEDS: NICOTINE 21 MG/24 HR PATCH T-DERMAL SCH (09:45)
[2016-06-22] MEDS: QUEtiapine FUMARATE 100 MG TAB PO SCH ×2 (09:45→20:21)
[2016-06-22] MEDS: hydrOXYzine HCL 50 MG TAB PO PRN ×3 (09:46→22:15)
--- NOTE | 2016-06-22 14:21 | HHI.PYPN ---
Subjective Remarks Pt seen and discussed with staff. Pt reports mood improving and he denies SI/ HI. He has been isolative to room but did come out for some unit activities in the evening. No aggression or agitation. No medication side effects. Objective Alert: Yes [place]: Person, Place, Date Mood: Other (anxiety reducing) Affect: Blunted Memory Intact: Comment (remains intact) Hallucinations: Other (no audiovisual hallucinations) Delusions: No Delusion Type: Other (no delusional beliefs) Suicidal: Ideation (no suicidal ideation) Homicidal: Ideation (no homicidal ideation) Insight/Judgement poor Vitals/IOs Vital Signs Date Time Temp Pulse Resp B/P Pulse Ox O2 Delivery O2 Flow Rate FiO2 06/22/16 09:45 98.1 100 18 237/75 97 Assessment & Plan Problem List: (1) Schizoaffective disorder ICD Code: F25.9 (2) Amphetamine abuse ICD Code: F15.10 Assessment & Plan Continue current tx plan. Estimated LOS: days Justification for Cont. Inpt. risk of decompensation. Request HC Surrog/Guard Advoc?: No Problem Qualifiers (1) Schizoaffective disorder: Qualified Code: F25.0 - Schizoaffective disorder, bipolar type Latia Griffith MD Jun 22, 2016 14:21
[2016-06-22] MEDS: MENTHOL LOZENGE BUCCAL PRN (17:01)
[2016-06-22 19:21] VITALS: BP 142/69; PULSE 98; RESP 19; TEMP 97.5; O2SAT 97
[2016-06-23 06:03] VITALS: BP 143/68; PULSE 95; RESP 18; TEMP 98.8; O2SAT 98
[2016-06-23] MEDS: hydrOXYzine HCL 50 MG TAB PO PRN (08:59)
[2016-06-23] MEDS: REMOVE OLD PATCH T-DERMAL SCH (09:00)
[2016-06-23] MEDS: NICOTINE 21 MG/24 HR PATCH T-DERMAL SCH (09:00)
[2016-06-23] MEDS: QUEtiapine FUMARATE 100 MG TAB PO SCH (09:31)
[2016-06-23] MEDS ORDERED: HYDR50TA94 PO (12:08)
[2016-06-23] MEDS ORDERED: QUET1TAB8 PO ×2 (12:08)
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
== END 2016-06-23 15:55 | disposition home or self-care (01) | DRG 885 ==
LOC: NEDAMB 18:05 → NEDA 06-17 15:32 → H270 06-17 16:45
PROVIDERS: ADMIT Psychiatry & Neurology Psychiatry; ATTEND Psychiatry & Neurology Psychiatry
DX: F25.0 Schizoaffective disorder, bipolar type (principal); F15.10 Other stimulant abuse, uncomplicated; Z81.8 Family history of other mental and behavioral disorders; Z62.810 Personal history of physical and sexual abuse in childhood; F41.9 Anxiety disorder, unspecified; J45.909 Unspecified asthma, uncomplicated; F17.210 Nicotine dependence, cigarettes, uncomplicated; J06.9 Acute upper respiratory infection, unspecified; Z23 Encounter for immunization
CPT/HCPCS: 80053; 80061; 80307; 80320; 80329; 83036; 85025; 90686; 99284; G0480; Q0163; Q2038

== ENCOUNTER 2017-04-06 19:30 | Emergency (ER) | payer OTHER ==
[~2017-04-06] VITALS: Ht 185.4 cm; Wt 100.0 kg
[~2017-04-06 19:30] MED LIST changes: +HYDR50TA94 PO; -PAXI10TA2 PO; +QUET1TAB8 PO; -SERO400T PO; -ZYPR10TA PO
[2017-04-06] MEDS ORDERED: LORA-474 PO (19:49)
[2017-04-06] MEDS ORDERED: ZYPR20TA PO (19:49)
[2017-04-06 19:50] VITALS: BP 119/70; PULSE 88; RESP 18; TEMP 98.2; O2SAT 100
[2017-04-06] MEDS ORDERED: LORazepam 2 MG/ML VIAL IV PUSH ONE (20:00)
--- NOTE | 2017-04-06 20:03 | PD ---
HPI Chief Complaint: Psychiatric Symptoms Time Seen by Provider: 19:49 Travel History International Travel<30 days: No Contact w/Intl Traveler<30days: No Traveled to known affect area: No History of Present Illness HPI Patient's 26 years old. He has a history of schizophrenia and has been noncompliant with Ativan and Zyprexa. He reports hearing voices today. He reports they conversed about his condition. He denies suicidal/homicidal ideation. He arrives as a francisco act. He denies drug or alcohol abuse. He has no medical complaint otherwise. PFSH Past Medical History Asthma: Yes Anxiety: Yes Depression: Yes Cancer: No Cardiovascular Problems: No Diabetes: No Diminished Hearing: No Headaches: No Psychiatric: Yes Respiratory: Yes (ASTHMA) Immunizations Current: Yes Schizophrenia: Yes Seizures: No Tetanus Vaccination: Unknown Influenza Vaccination: No Past Surgical History Eye Surgery: Yes (LEFT EYE) Other Surgery: Yes (SEE JPOD NOTES) Social History Alcohol Use: No Tobacco Use: Yes (1 PPD) Substance Use: Yes (METH) Allergies-Medications (Allergen,Severity, Reaction): Coded Allergies: milk (Unverified Allergy, Severe, 04/06/17) lactose (Unverified Allergy, Unknown, 04/06/17) Lactose Intollerant per paperwork from [facility]. Uncoded Allergies: Fish (Allergy, Unknown, 06/11/16) No Fish, per paperwork sent by [facility]. Reported Meds & Prescriptions Reported Meds & Active Scripts Active Reported Ativan (Lorazepam) 1 Mg Tab 1 Mg PO DAILY PRN Zyprexa (Olanzapine) 20 Mg Tab 20 Mg PO DAILY Review of Systems Except as stated in HPI: all other systems reviewed are Neg General / Constitutional: No: Fever Cardiovascular: No: Chest Pain or Discomfort Respiratory: No: Shortness of Breath Physical Exam Narrative GENERAL: 26-year-old male well-nourished well-developed SKIN: Focused skin assessment warm/dry. HEAD: Atraumatic. Normocephalic. EYES: Pupils equal and round. No scleral icterus. No injection or drainage. ENT: No nasal bleeding or discharge. Mucous membranes pink and moist. NECK: Trachea midline. No JVD. CARDIOVASCULAR: Regular rate and rhythm. No murmur appreciated. RESPIRATORY: No accessory muscle use. Clear to auscultation. Breath sounds equal bilaterally. GASTROINTESTINAL: Abdomen soft, non-tender, nondistended. Hepatic and splenic margins not palpable. MUSCULOSKELETAL: No obvious deformities. No clubbing. No cyanosis. No edema. NEUROLOGICAL: Awake and alert. No obvious cranial nerve deficits. Motor grossly within normal limits. Normal speech. PSYCHIATRIC: Cooperative. Slightly anxious. No evidence of response to internal stimulus. No homicidal or suicidal ideation. Data Data Last Documented VS Vital Signs Date Time Temp Pulse Resp B/P (MAP) Pulse Ox O2 Delivery O2 Flow Rate FiO2 04/06/17 23:37 90 18 135/76 (95) 04/06/17 20:12 99 Room Air 04/06/17 19:50 98.2 Orders Orders Complete Blood Count With Diff (04/06/17 19:58) Comprehensive Metabolic Panel (04/06/17 19:58) Oximetry (04/06/17 19:58) Iv Access Insert/Monitor (04/06/17 19:58) Ecg Monitoring (04/06/17 19:58) Psych Screen (04/06/17 19:58) Lorazepam Inj (Ativan Inj) (04/06/17 20:00) Drug Screen, Random Urine (04/06/17 19:58) Alcohol (Ethanol) (04/06/17 19:58) Olanzapine (Zyprexa) (04/06/17 20:15) Diet Regular Basic (04/07/17 Breakfast) Labs Laboratory Tests Test 04/06/17 20:05 04/06/17 20:50 White Blood Count 5.7 TH/MM3 Red Blood Count 4.45 MIL/MM3 Hemoglobin 14.2 GM/DL Hematocrit 41.8 % Mean Corpuscular Volume 93.9 FL Mean Corpuscular Hemoglobin 31.8 PG Mean Corpuscular Hemoglobin Concent 33.9 % Red Cell Distribution Width 13.0 % Platelet Count 234 TH/MM3 Mean Platelet Volume 9.4 FL Neutrophils (%) (Auto) 62.4 % Lymphocytes (%) (Auto) 24.7 % Monocytes (%) (Auto) 8.5 % Eosinophils (%) (Auto) 3.8 % Basophils (%) (Auto) 0.6 % Neutrophils # (Auto) 3.6 TH/MM3 Lymphocytes # (Auto) 1.4 TH/MM3 Monocytes # (Auto) 0.5 TH/MM3 Eosinophils # (Auto) 0.2 TH/MM3 Basophils # (Auto) 0.0 TH/MM3 CBC Comment DIFF FINAL Differential Comment Blood Urea Nitrogen 10 MG/DL Creatinine 0.92 MG/DL Random Glucose 88 MG/DL Total Protein 7.1 GM/DL Albumin 4.2 GM/DL Calcium Level 9.2 MG/DL Alkaline Phosphatase 73 U/L Aspartate Amino Transf (AST/SGOT) 22 U/L Alanine Aminotransferase (ALT/SGPT) 37 U/L Total Bilirubin 0.4 MG/DL Sodium Level 140 MEQ/L Potassium Level 3.8 MEQ/L Chloride Level 107 MEQ/L Carbon Dioxide Level 22.0 MEQ/L Anion Gap 11 MEQ/L Estimat Glomerular Filtration Rate 99 ML/MIN Ethyl Alcohol Level LESS THAN 3 MG/DL Urine Opiates Screen NEG Urine Barbiturates Screen NEG Urine Amphetamines Screen POS Urine Benzodiazepines Screen POS Urine Cocaine Screen NEG Urine Cannabinoids Screen NEG MDM Medical Decision Making Medical Screen Exam Complete: Yes Emergency Medical Condition: Yes Medical Record Reviewed: Yes Differential Diagnosis Altered mental status/psychosis due to infection/environmental exposure/ metabolic abnormality, polypharmacy, alcohol abuse/intoxication, illicit or prescribed drug abuse, malingering/secondary gain, non-organic psychiatric disease Narrative Course CBC & BMP Diagram 04/06/17 20:05 Total Protein 7.1, Albumin 4.2, Calcium Level 9.2, Alkaline Phosphatase 73, Aspartate Amino Transf (AST/SGOT) 22, Alanine Aminotransferase (ALT/SGPT) 37, Total Bilirubin 0.4 Benzos and amphetamines are present on the urine drug screen. The patient is acutely psychotic and will require psychiatric evaluation. Diagnosis Primary Impression: Acute psychosis Tremayne Ruiz MD Apr 06, 2017 20:03
[2017-04-06 20:12] VITALS: O2SAT 99
[2017-04-06] MEDS ORDERED: OLANZapine 10 MG TAB PO ONE (20:15)
[2017-04-06 20:29] LABS: AUTOMATED NEUTROPHIL # 3.6 TH/MM3 (1.8-7.7); BASOPHIL % 0.6 % (0.0-2.0); EOSINOPHIL # 0.2 TH/MM3 (0-0.4); EOSINOPHIL % 3.8 % (0.0-4.0); HEMATOCRIT 41.8 % (39.0-51.0); HEMO FLAGS DIFF FINAL; LYMPH % 24.7 % (9.0-44.0); LYMPHOCYTE # 1.4 TH/MM3 (1.0-4.8); MEAN CELL VOLUME 93.9 FL (80.0-100.0); MEAN CORPUSCULAR HEMOGLOBIN 31.8 PG (27.0-34.0); MEAN CORPUSCULAR HGB CONC 33.9 % (32.0-36.0); MONO % 8.5 % (0.0-8.0); NEUT % 62.4 % (16.0-70.0); PLATELET COUNT 234 TH/MM3 (150-450); RED BLOOD COUNT 4.45 MIL/MM3 (4.50-5.90); WHITE BLOOD COUNT 5.7 TH/MM3 (4.0-11.0)
[2017-04-06 20:47] LABS: ANION GAP 11 MEQ/L (5-15); AST (GOT) 22 U/L (15-37); BLOOD UREA NITROGEN 10 MG/DL (7-18); CHLORIDE 107 MEQ/L (98-107); GLOMERULAR FILTRATION RATE 99 ML/MIN (>89); POTASSIUM 3.8 MEQ/L (3.5-5.1); SODIUM (NA) 140 MEQ/L (136-145)
[2017-04-06 20:48] LABS: ALCOHOL LESS THAN 3 MG/DL (0-5)
[2017-04-06 20:51] LABS: ALKALINE PHOSPHATASE 73 U/L (45-117); ALT (GPT) 37 U/L (12-78); TOTAL BILIRUBIN ADULT 0.4 MG/DL (0.2-1.0)
[2017-04-06 23:37] VITALS: BP 135/76; PULSE 90; RESP 18
[2017-04-07 06:24] VITALS: BP 130/69; PULSE 57; RESP 17
[2017-04-07 11:26] VITALS: BP 128/70; PULSE 64; RESP 17; O2SAT 98
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
[2017-04-07 18:10] VITALS: BP 122/68; PULSE 72; RESP 20; TEMP 98.8; O2SAT 100
[2017-04-07] MEDS ORDERED: OLANZapine 10 MG TAB PO SCH (20:45)
[2017-04-07 22:52] VITALS: BP 147/84; PULSE 54; RESP 18; O2SAT 98
== END 2017-04-08 01:15 ==
LOC: NEPE 19:30 → NEPJ 04-08 01:15
DX: F25.9 Schizoaffective disorder, unspecified (principal); F11.10 Opioid abuse, uncomplicated; J45.909 Unspecified asthma, uncomplicated; F41.9 Anxiety disorder, unspecified; F17.200 Nicotine dependence, unspecified, uncomplicated; Z79.899 Other long term (current) drug therapy; Z91.14 Patient's other noncompliance with medication regimen
CPT/HCPCS: 80053; 80307; 85025; 96374; 99284; J2060

== ENCOUNTER 2017-05-14 00:12 | Emergency (ER) | payer OTHER ==
[~2017-05-14] VITALS: Ht 185.4 cm; Wt 104.5 kg
[~2017-05-14 00:12] MED LIST changes: -HYDR50TA94 PO; +LORA-474 PO; -QUET1TAB8 PO; +ZYPR20TA PO
[2017-05-14 00:13] VITALS: BP 138/86; PULSE 69; RESP 16; TEMP 98.6; O2SAT 98
--- NOTE | 2017-05-14 00:39 | PD ---
HPI Chief Complaint: Psychiatric Symptoms Time Seen by Provider: 00:35 Travel History International Travel<30 days: No Contact w/Intl Traveler<30days: No Traveled to known affect area: No History of Present Illness HPI This is a 27-year-old male with history of schizoaffective disorder who presents with his mother and sister for evaluation. The patient reports that he has long-standing history of auditory hallucinations, anxiety. He reports that he gets a "bad energy" from the hallucinations. He sees a psychiatrist at [facility] is prescribed Zyprexa and Ativan which he reports helped significantly with the symptoms however he ran out of his medications 1-2 weeks ago. He had an appointment to get the medications refilled but he forgot about it and then the appointment was delayed and this is the reason why he presents for evaluation. He denies any suicidal or homicidal ideation. He endorses occasional marijuana use, most recently a few days ago. He has no other complaints at this time. PFSH Past Medical History Asthma: Yes Bipolar Disorder: Yes Anxiety: Yes Depression: Yes Cancer: No Cardiovascular Problems: No Diabetes: No Diminished Hearing: No Headaches: No Psychiatric: Yes (SCHIZO, BIPOLAR, ANXIETY) Respiratory: Yes (ASTHMA) Immunizations Current: Yes Schizophrenia: Yes Seizures: No Past Surgical History Eye Surgery: Yes (LEFT EYE) Other Surgery: Yes (SEE JPOD NOTES) Social History Alcohol Use: No Tobacco Use: Yes Substance Use: Yes (METH) Allergies-Medications (Allergen,Severity, Reaction): Coded Allergies: milk (Unverified Allergy, Severe, 04/06/17) lactose (Unverified Allergy, Unknown, 04/06/17) Lactose Intollerant per paperwork from [facility]. Uncoded Allergies: Fish (Allergy, Unknown, 06/11/16) No Fish, per paperwork sent by [facility]. Reported Meds & Prescriptions Reported Meds & Active Scripts Active Reported Ativan (Lorazepam) 1 Mg Tab 1 Mg PO DAILY PRN Zyprexa (Olanzapine) 20 Mg Tab 20 Mg PO DAILY Review of Systems Except as stated in HPI: all other systems reviewed are Neg Physical Exam Narrative GENERAL: Well-developed well-nourished male in no acute distress SKIN: Warm and dry. HEAD: Atraumatic. Normocephalic. EYES: Pupils equal and round. No scleral icterus. No injection or drainage. ENT: No nasal bleeding or discharge. Mucous membranes pink and moist. NECK: Trachea midline. No JVD. CARDIOVASCULAR: Regular rate and rhythm. No murmur appreciated. RESPIRATORY: No accessory muscle use. Clear to auscultation. Breath sounds equal bilaterally. GASTROINTESTINAL: Abdomen soft, non-tender, nondistended. Hepatic and splenic margins not palpable. MUSCULOSKELETAL: No obvious deformities. No clubbing. No cyanosis. No edema. NEUROLOGICAL: Awake and alert. No obvious cranial nerve deficits. Motor grossly within normal limits. Normal speech. PSYCHIATRIC: Appropriate mood and affect; insight and judgment normal. Anxious. Data Data Last Documented VS Vital Signs Date Time Temp Pulse Resp B/P (MAP) Pulse Ox O2 Delivery O2 Flow Rate FiO2 05/14/17 00:13 98.6 69 16 138/86 (103) 98 Room Air Orders Orders Olanzapine Inj (Zyprexa Inj) (05/14/17 00:45) Lorazepam Inj (Ativan Inj) (05/14/17 00:45) [facility] Medical Decision Making Medical Screen Exam Complete: Yes Emergency Medical Condition: Yes Medical Record Reviewed: Yes Differential Diagnosis Medication noncompliance, schizoaffective disorder, substance induced mood disorder, acute psychosis Narrative Course 27-year-old male with history of schizoaffective disorder presents for evaluation of anxiety and auditory hallucinations which are chronic. He reports significant improvement in his symptoms with the use of Ativan and Zyprexa which she is prescribed however he recently ran out. He voices no suicidal or homicidal ideation. The patient will be given a dose of Zyprexa and Ativan here. His family members feel comfortable taking him home and having him follow-up with his psychiatrist at [facility]. They understand to return for any acutely new or worsening symptoms. Stable for discharge. Diagnosis Primary Impression: Schizoaffective disorder Referrals: [facility] Additional Instructions: Follow-up with your psychiatrist at [facility]. Return for any acutely new or worsening symptoms. Med/Other Pt SpecificInfo: No Change to Meds Disposition: 01 DISCHARGE HOME Condition: Stable Todd Apple May 14, 2017 00:39
[2017-05-14] MEDS ORDERED: OLANZapine IM 10 MG VIAL IM ONE (00:45)
[2017-05-14] MEDS ORDERED: LORazepam 2 MG/ML VIAL IM ONE (00:45)
== END 2017-05-14 01:05 | disposition home or self-care (01) ==
LOC: NEPD 00:12
DX: F25.9 Schizoaffective disorder, unspecified (principal); F31.9 Bipolar disorder, unspecified; F12.90 Cannabis use, unspecified, uncomplicated; Z72.0 Tobacco use
CPT/HCPCS: 96372; 99284; J2060

== ENCOUNTER 2017-06-28 03:01 | Emergency (ER) | payer OTHER ==
[~2017-06-28] VITALS: Ht 188 cm; Wt 110.0 kg
[2017-06-28 03:26] VITALS: BP 124/73; PULSE 73; RESP 18; TEMP 98.6; O2SAT 95
[2017-06-28] MEDS ORDERED: LORazepam 2 MG/ML VIAL IM ONE (03:30)
[2017-06-28] MEDS ORDERED: OLANZapine IM 10 MG VIAL IM ONE ×2 (03:34)
[2017-06-28 04:58] LABS: AUTOMATED NEUTROPHIL # 3.4 TH/MM3 (1.8-7.7); BASOPHIL # 0.1 TH/MM3 (0-0.2); BASOPHIL % 0.8 % (0.0-2.0); EOSINOPHIL # 0.5 TH/MM3 (0-0.4); HEMATOCRIT 40.2 % (39.0-51.0); HEMOGLOBIN 13.7 GM/DL (13.0-17.0); LYMPH % 36.9 % (9.0-44.0); LYMPHOCYTE # 2.6 TH/MM3 (1.0-4.8); MEAN CELL VOLUME 93.6 FL (80.0-100.0); MEAN CORPUSCULAR HEMOGLOBIN 31.9 PG (27.0-34.0); MEAN CORPUSCULAR HGB CONC 34.1 % (32.0-36.0); MEAN PLATELET VOLUME 9.4 FL (7.0-11.0); MONO % 7.1 % (0.0-8.0); MONOCYTE # 0.5 TH/MM3 (0-0.9); NEUT % 48.2 % (16.0-70.0); PLATELET COUNT 205 TH/MM3 (150-450); RED BLOOD COUNT 4.29 MIL/MM3 (4.50-5.90); RED CELL DISTRIBUTION WIDTH 12.8 % (11.6-17.2); WHITE BLOOD COUNT 7.1 TH/MM3 (4.0-11.0)
--- NOTE | 2017-06-28 05:15 | PD ---
HPI Chief Complaint: Psychiatric Symptoms Time Seen by Provider: 04:22 Travel History International Travel<30 days: No Contact w/Intl Traveler<30days: No Traveled to known affect area: No History of Present Illness HPI Patient is a 27-year-old male that presented to the emergency department under Dutta act due to suicidal ideations. Apparently patient's been hallucinating and the voices are telling him to kill himself. Patient has been noncompliant with routine medications. Patient was medicated due to escalating behavior, history is limited to Dutta act report and psych RNs report. PFSH Past Medical History Asthma: Yes Bipolar Disorder: Yes Anxiety: Yes Depression: Yes Cancer: No Cardiovascular Problems: No Diabetes: No Diminished Hearing: No Headaches: No Psychiatric: Yes (SCHIZO, BIPOLAR, ANXIETY) Respiratory: Yes (ASTHMA) Immunizations Current: Yes Schizophrenia: Yes Seizures: No Past Surgical History Eye Surgery: Yes (LEFT EYE) Other Surgery: Yes (SEE JPOD NOTES) Social History Alcohol Use: No Tobacco Use: Yes Substance Use: Yes (METH) Allergies-Medications (Allergen,Severity, Reaction): Coded Allergies: milk (Unverified Allergy, Severe, 06/28/17) lactose (Unverified Allergy, Unknown, 06/28/17) Lactose Intollerant per paperwork from [facility]. Uncoded Allergies: Fish (Allergy, Unknown, 06/11/16) No Fish, per paperwork sent by [facility]. Reported Meds & Prescriptions Reported Meds & Active Scripts Active Reported Ativan (Lorazepam) 1 Mg Tab 1 Mg PO DAILY PRN Zyprexa (Olanzapine) 20 Mg Tab 20 Mg PO DAILY Review of Systems ROS Limitations: Clinical Condition Except as stated in HPI: all other systems reviewed are Neg Psychiatric: Positive: Suicidal Ideations, Mood Disorder Physical Exam Narrative GENERAL: Well-developed, well-nourished male. Sitting comfortably in no acute distress. SKIN: Warm and dry. HEAD: Atraumatic. Normocephalic. EYES: Pupils equal and round. No scleral icterus. No injection or drainage. ENT: No nasal bleeding or discharge. Mucous membranes pink and moist. NECK: Trachea midline. No JVD. CARDIOVASCULAR: Regular rate and rhythm. RESPIRATORY: No accessory muscle use. Clear to auscultation. Breath sounds equal bilaterally. GASTROINTESTINAL: Abdomen soft, non-tender, nondistended. Hepatic and splenic margins not palpable. MUSCULOSKELETAL: Extremities without clubbing, cyanosis, or edema. No obvious deformities. NEUROLOGICAL: Drowsy but arousable. No obvious cranial nerve deficits. Motor grossly within normal limits. Five out of 5 muscle strength in the arms and legs. Normal speech. Data Data Last Documented VS Vital Signs Date Time Temp Pulse Resp B/P (MAP) Pulse Ox O2 Delivery O2 Flow Rate FiO2 06/28/17 06:20 98.6 85 18 110/67 (81) 96 Room Air Orders Orders Lorazepam Inj (Ativan Inj) (06/28/17 03:30) Complete Blood Count With Diff (06/28/17 03:26) Comprehensive Metabolic Panel (06/28/17 03:26) Thyroid Stimulating Hormone (06/28/17 03:26) Psych Screen (06/28/17 03:26) Drug Screen, Random Urine (06/28/17 03:26) Alcohol (Ethanol) (06/28/17 03:26) Olanzapine Inj (Zyprexa Inj) (06/28/17 03:34) Olanzapine Inj (Zyprexa Inj) (06/28/17 03:34) Diet Regular Basic (06/28/17 Breakfast) Labs Laboratory Tests Test 06/28/17 04:04 White Blood Count 7.1 TH/MM3 Red Blood Count 4.29 MIL/MM3 Hemoglobin 13.7 GM/DL Hematocrit 40.2 % Mean Corpuscular Volume 93.6 FL Mean Corpuscular Hemoglobin 31.9 PG Mean Corpuscular Hemoglobin Concent 34.1 % Red Cell Distribution Width 12.8 % Platelet Count 205 TH/MM3 Mean Platelet Volume 9.4 FL Neutrophils (%) (Auto) 48.2 % Lymphocytes (%) (Auto) 36.9 % Monocytes (%) (Auto) 7.1 % Eosinophils (%) (Auto) 7.0 % Basophils (%) (Auto) 0.8 % Neutrophils # (Auto) 3.4 TH/MM3 Lymphocytes # (Auto) 2.6 TH/MM3 Monocytes # (Auto) 0.5 TH/MM3 Eosinophils # (Auto) 0.5 TH/MM3 Basophils # (Auto) 0.1 TH/MM3 CBC Comment AUTO DIFF Differential Comment AUTO DIFF CONFIRMED MDM Medical Decision Making Medical Screen Exam Complete: Yes Emergency Medical Condition: Yes Interpretation(s) Vital Signs Date Time Temp Pulse Resp B/P (MAP) Pulse Ox O2 Delivery O2 Flow Rate FiO2 06/28/17 03:26 98.6 73 18 124/73 (90) 95 Room Air Differential Diagnosis Mood disorder versus substance abuse versus suicidal ideations versus noncompliance versus homicidal ideations versus other Narrative Course Patient is a 27-year-old male presenting to the emergency department for psychiatric evaluation secondary to suicidal ideations and medication noncompliance. Patient's vital signs are stable. Mental health screening discussed with the patient. Psychiatric screen ordered. Ativan 1 mg IM 1 dose was ordered due to escalating behavior. Care of patient transferred to Sonal BOYD, she will determine patient's disposition. Labs are pending. Kary Alfaro Jun 28, 2017 05:15
[2017-06-28 05:23] LABS: ALBUMIN 3.7 GM/DL (3.4-5.0); ALT (GPT) 47 U/L (12-78); AST (GOT) 19 U/L (15-37); BICARBONATE 24.1 MEQ/L (21.0-32.0); BLOOD UREA NITROGEN 11 MG/DL (7-18); CREATININE 0.94 MG/DL (0.60-1.30); GLOMERULAR FILTRATION RATE 96 ML/MIN (>89); GLUCOSE,RANDOM 90 MG/DL (74-106)
[2017-06-28 06:20] VITALS: BP 110/67; PULSE 85; RESP 18; TEMP 98.6; O2SAT 96
[2017-06-28 06:39] LABS: ALKALINE PHOSPHATASE 74 U/L (45-117); CHLORIDE 110 MEQ/L (98-107); SODIUM (NA) 142 MEQ/L (136-145); TOTAL BILIRUBIN ADULT 0.3 MG/DL (0.2-1.0); TOTAL PROTEIN 6.5 GM/DL (6.4-8.2)
--- NOTE | 2017-06-28 07:42 | PD ---
Physical Exam Time Seen by Provider: 07:40 Narrative Received report from OLIVER Medina at change shift. See her note for initial assessment and evaluation of the patient. Labs pending. Data Data Last Documented VS Vital Signs Date Time Temp Pulse Resp B/P (MAP) Pulse Ox O2 Delivery O2 Flow Rate FiO2 06/28/17 06:20 98.6 85 18 110/67 (81) 96 Room Air Orders Orders Lorazepam Inj (Ativan Inj) (06/28/17 03:30) Complete Blood Count With Diff (06/28/17 03:26) Comprehensive Metabolic Panel (06/28/17 03:26) Thyroid Stimulating Hormone (06/28/17 03:26) Psych Screen (06/28/17 03:26) Drug Screen, Random Urine (06/28/17 03:26) Alcohol (Ethanol) (06/28/17 03:26) Olanzapine Inj (Zyprexa Inj) (06/28/17 03:34) Olanzapine Inj (Zyprexa Inj) (06/28/17 03:34) Diet Regular Basic (06/28/17 Breakfast) Labs Laboratory Tests Test 06/28/17 04:04 White Blood Count 7.1 TH/MM3 Red Blood Count 4.29 MIL/MM3 Hemoglobin 13.7 GM/DL Hematocrit 40.2 % Mean Corpuscular Volume 93.6 FL Mean Corpuscular Hemoglobin 31.9 PG Mean Corpuscular Hemoglobin Concent 34.1 % Red Cell Distribution Width 12.8 % Platelet Count 205 TH/MM3 Mean Platelet Volume 9.4 FL Neutrophils (%) (Auto) 48.2 % Lymphocytes (%) (Auto) 36.9 % Monocytes (%) (Auto) 7.1 % Eosinophils (%) (Auto) 7.0 % Basophils (%) (Auto) 0.8 % Neutrophils # (Auto) 3.4 TH/MM3 Lymphocytes # (Auto) 2.6 TH/MM3 Monocytes # (Auto) 0.5 TH/MM3 Eosinophils # (Auto) 0.5 TH/MM3 Basophils # (Auto) 0.1 TH/MM3 CBC Comment AUTO DIFF Differential Comment AUTO DIFF CONFIRMED Blood Urea Nitrogen 11 MG/DL Creatinine 0.94 MG/DL Random Glucose 90 MG/DL Total Protein 6.5 GM/DL Albumin 3.7 GM/DL Calcium Level 8.0 MG/DL Alkaline Phosphatase 74 U/L Aspartate Amino Transf (AST/SGOT) 19 U/L Alanine Aminotransferase (ALT/SGPT) 47 U/L Total Bilirubin 0.3 MG/DL Sodium Level 142 MEQ/L Potassium Level 3.5 MEQ/L Chloride Level 110 MEQ/L Carbon Dioxide Level 24.1 MEQ/L Anion Gap 8 MEQ/L Estimat Glomerular Filtration Rate 96 ML/MIN Thyroid Stimulating Hormone 3rd Gen 1.610 uIU/ML Ethyl Alcohol Level LESS THAN 3 MG/DL MDM Supervised Visit with EVELYNE: No Narrative Course Received report from OLIVER Medina at change shift. See her note for initial assessment and evaluation of the patient. Labs pending. 1941: Labs unremarkable. Patient cleared for psychological evaluation. Diagnosis Primary Impression: Encounter for psychological evaluation Condition: Stable Sonal Chester Jun 28, 2017 07:41
[2017-06-28 10:15] VITALS: BP 127/86; PULSE 85; RESP 20; O2SAT 98
[2017-06-28 18:40] VITALS: BP 98/55; PULSE 65; RESP 18
[2017-06-28 22:08] VITALS: BP 105/59; PULSE 85; RESP 18; TEMP 98.6; O2SAT 98
[2017-06-29 02:05] VITALS: BP 134/63; PULSE 56; RESP 18; TEMP 97.2; O2SAT 98
[2017-06-29 06:34] VITALS: BP 131/59; PULSE 59; RESP 18; TEMP 98.2; O2SAT 99
--- NOTE | 2017-06-29 12:08 | PD ---
History of Present Illness Chief Complaint: Psychiatric Symptoms Time Seen by Provider: 12:00 Travel History International Travel<30 Days: No Contact w/Intl Traveler<30days: No Known affected area: No Legal Status Legal Status: Dutta Act Dutta Act Signed By: Mathew Teresa History of Present Illness: History of Present Illness HPI Patient is a 27-year-old male with history of schizoaffective disorder that presents to the emergency department under Dutta act initiated by law enforcement. The Dutta act alleges that the patient has been experiencing hallucinations and the voices are telling him to kill himself as well as to kill people around him. He also reports that he has been off his medications for several days. Patient was medicated with Zyprexa while in the ED. Patient was then transferred to [facility] for further observation and he has been sleeping since his arrival to the unit. No further episodes of any behavioral concerns. Current toxicology is positive for amphetamines although the patient denies that he has been using any substances. Electronic medical record is reviewed. The patient was last evaluated here in April 2017 for similar complaints. His last psychiatric admission was in June 172016 in relation to noncompliance with psychiatric medication. Patient is seen. He is asleep but awakens with verbal prompting. He is calm, engaging and cooperative. His speech is clear and logical. He does not appear internally stimulated and denies current hallucinations. He states "I ran out of medicine a few days ago and I was hearing voices". The patient currently denies any suicidal or homicidal ideation, intent or plan. He is agreeable to restarting his medication and a subsequent prescription. He tells me has an appointment on the 16 for a follow-up at [facility]. [facility] Past Medical History Asthma: Yes Bipolar Disorder: Yes Anxiety: Yes Depression: Yes Cancer: No Cardiovascular Problems: No Diabetes: No Diminished Hearing: No Headaches: No Psychiatric: Yes (SCHIZO, BIPOLAR, ANXIETY) Respiratory: Yes (ASTHMA) Immunizations Current: Yes Schizophrenia: Yes Seizures: No Past Surgical History Eye Surgery: Yes (LEFT EYE) Other Surgery: Yes (SEE JPOD NOTES) Psychiatric History Psychiatric History Hx Psychiatric Treatment: PATIENT WAS LAST ADMITTED TO [facility] FROM 06/17/16 TO 06/23/16 FOR SCHIZOAFFECTIVE DISORDER. PATIENT WAS SEEN AT [facility] ON 05/14/17 FOR SIMILAR CIRCUMSTANCES OF TODAY: AUDITORY HALLUCINATIONS DUE TO BEING NONCOMPLIANT WITH MEDICATIONS. . History of Inpatient Treatment: Yes Guns or firearms in home: No Social History Single male who lives with his mother. Patient is on disability. Hx Alcohol Use: No Hx Tobacco Use: Yes Hx Substance Use: Yes (METH) Substance Use Type: Alcohol, Amphetamines-Stimulants, Nicotine/Cigarettes, Prescription Medications, Benzos (Valium,Xanax) Other Substances Used: States last used a few days ago. Hx of Substance Use Treatment: No Family Psychiatric History Negative Allergies-Medications (Allergen,Severity, Reaction): Coded Allergies: milk (Unverified Allergy, Severe, 06/28/17) lactose (Unverified Allergy, Unknown, 06/28/17) Lactose Intollerant per paperwork from [facility]. Uncoded Allergies: Fish (Allergy, Unknown, 06/11/16) No Fish, per paperwork sent by [facility]. Reported Meds & Prescriptions Reported Meds & Active Scripts Active Reported Ativan (Lorazepam) 1 Mg Tab 1 Mg PO DAILY PRN Zyprexa (Olanzapine) 20 Mg Tab 20 Mg PO DAILY Review of Systems Psychiatric: COMPLAINS OF: Hallucinations Except as stated in HPI: all other systems reviewed are Neg Mental Status Examination Appearance: Appropriate Consciousness: Asleep Orientation: x4 (arousable) Motor Activity: Normal gait Speech: Unremarkable Language: Adequate Fund of Knowledge: Adequate Memory: Unremarkable Mood: Appropriate Affect: Appropriate Thought Process & Associations: Intact, Logical Thought Content: Appropriate Hallucination Type: None Suicidal Ideation: No Suicidal Plan: No Suicidal Intention: No Homicidal Ideation: No Homicidal Plan: No Homicidal Intention: No Insight: Poor Judgment: Adequate [facility] Medical Decision Making Medical Record Reviewed: Yes Assessment/Plan 27-year-old male with history of schizoaffective disorder who in context of noncompliance with his prescribed medication as well as use of amphetamines reported increase in auditory hallucinations command type that were telling him to kill himself and kill people around him. The patient did not act on these hallucinations and did not engage in any behavior that was harmful to himself or any other person. The patient was provided a dosage of his Zyprexa and was allowed to sleep. This morning on evaluation he denies current hallucinations. He denies any suicidal homicidal ideation intent or plan. He agrees to follow -up at [facility]. He is counseled on use of substances and abstinence is recommended. The patient at this time does not meet criteria for Dutta act. The Dutta act will be lifted. 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
[2017-06-29] MEDS ORDERED: ZYPR20TA PO (12:10)
--- NOTE | 2017-06-29 12:28 | PD ---
Physical Exam Date Seen by Provider: Jun 29, 2017 Time Seen by Provider: 12:27 Narrative 27-year-old male patient previously medically cleared for psychiatric evaluation. Patient was seen by psychiatric staff and felt to be psychiatrically stable for discharge. Patient remains medically stable for discharge at this time. Follow-up will be based on the psychiatric note. Data Data Last Documented VS Vital Signs Date Time Temp Pulse Resp B/P (MAP) Pulse Ox O2 Delivery O2 Flow Rate FiO2 06/29/17 06:34 98.2 59 18 131/59 (83) 99 Room Air Orders Orders Lorazepam Inj (Ativan Inj) (06/28/17 03:30) Complete Blood Count With Diff (06/28/17 03:26) Comprehensive Metabolic Panel (06/28/17 03:26) Thyroid Stimulating Hormone (06/28/17 03:26) Psych Screen (06/28/17 03:26) Drug Screen, Random Urine (06/28/17 03:26) Alcohol (Ethanol) (06/28/17 03:26) Olanzapine Inj (Zyprexa Inj) (06/28/17 03:34) Olanzapine Inj (Zyprexa Inj) (06/28/17 03:34) Diet Regular Basic (06/28/17 Breakfast) Diet Regular Basic (06/28/17 Lunch) Diet Regular Basic (06/28/17 Dinner) Diet Regular Basic (06/29/17 Breakfast) Diet Regular Basic (06/29/17 Lunch) Labs Laboratory Tests Test 06/28/17 04:04 06/28/17 12:00 White Blood Count 7.1 TH/MM3 Red Blood Count 4.29 MIL/MM3 Hemoglobin 13.7 GM/DL Hematocrit 40.2 % Mean Corpuscular Volume 93.6 FL Mean Corpuscular Hemoglobin 31.9 PG Mean Corpuscular Hemoglobin Concent 34.1 % Red Cell Distribution Width 12.8 % Platelet Count 205 TH/MM3 Mean Platelet Volume 9.4 FL Neutrophils (%) (Auto) 48.2 % Lymphocytes (%) (Auto) 36.9 % Monocytes (%) (Auto) 7.1 % Eosinophils (%) (Auto) 7.0 % Basophils (%) (Auto) 0.8 % Neutrophils # (Auto) 3.4 TH/MM3 Lymphocytes # (Auto) 2.6 TH/MM3 Monocytes # (Auto) 0.5 TH/MM3 Eosinophils # (Auto) 0.5 TH/MM3 Basophils # (Auto) 0.1 TH/MM3 CBC Comment AUTO DIFF Differential Comment AUTO DIFF CONFIRMED Blood Urea Nitrogen 11 MG/DL Creatinine 0.94 MG/DL Random Glucose 90 MG/DL Total Protein 6.5 GM/DL Albumin 3.7 GM/DL Calcium Level 8.0 MG/DL Alkaline Phosphatase 74 U/L Aspartate Amino Transf (AST/SGOT) 19 U/L Alanine Aminotransferase (ALT/SGPT) 47 U/L Total Bilirubin 0.3 MG/DL Sodium Level 142 MEQ/L Potassium Level 3.5 MEQ/L Chloride Level 110 MEQ/L Carbon Dioxide Level 24.1 MEQ/L Anion Gap 8 MEQ/L Estimat Glomerular Filtration Rate 96 ML/MIN Thyroid Stimulating Hormone 3rd Gen 1.610 uIU/ML Ethyl Alcohol Level LESS THAN 3 MG/DL Urine Opiates Screen NEG Urine Barbiturates Screen NEG Urine Amphetamines Screen POS Urine Benzodiazepines Screen NEG Urine Cocaine Screen NEG Urine Cannabinoids Screen NEG MDM Medical Record Reviewed: Yes Supervised Visit with EVELYNE: Yes Diagnosis Primary Impression: Encounter for psychological evaluation Scripts Olanzapine (Zyprexa) 20 Mg Tab 20 MG PO HS for psychosis, mood for 30 Days, #30 TAB 0 Refills Prov: KaurReyna Maria Eugenia Aj BOYD 06/29/17 Disposition: 01 DISCHARGE HOME Condition: Stable Blake Calle Jun 29, 2017 12:28
== END 2017-06-29 14:01 | disposition home or self-care (01) ==
LOC: NEPJ 03:01
DX: F25.9 Schizoaffective disorder, unspecified (principal); R45.851 Suicidal ideations; F15.10 Other stimulant abuse, uncomplicated; R44.3 Hallucinations, unspecified; F31.9 Bipolar disorder, unspecified; F41.9 Anxiety disorder, unspecified; J45.909 Unspecified asthma, uncomplicated; Z91.14 Patient's other noncompliance with medication regimen; Z72.0 Tobacco use
CPT/HCPCS: 80053; 80307; 84443; 85025; 96372; 99283; J2060

== ENCOUNTER 2017-10-07 17:36 | Emergency (ER) | payer SELFPAY ==
[2017-10-07 17:41] VITALS: BP 141/64; PULSE 105; RESP 20; TEMP 98.9; O2SAT 98
[2017-10-07] MEDS ORDERED: OLANZapine IM 10 MG VIAL IM ONE (18:00)
--- NOTE | 2017-10-07 18:06 | PD ---
HPI Chief Complaint: Psychiatric Symptoms Time Seen by Provider: 17:48 Travel History International Travel<30 days: No Contact w/Intl Traveler<30days: No Traveled to known affect area: No History of Present Illness HPI 27-year-old male with history of bipolar disorder followed by Kamaljit Melendez, is here with his mother and sister on a voluntary basis for increased manic symptoms. Patient states he was seen at [facility] today and is scheduled to get his prescriptions tomorrow which include Zyprexa and BuSpar. He states he was unable to get any for today and feels that he is manic, and hearing voices, but denies suicidal or homicidal ideation. Patient obviously has good support with his mom and sister. He has been this way in the past according to mom and does well with a dose of Zyprexa. He denies any other medical issues. He is allergic to fish, lactose, and milk. PFSH Past Medical History Asthma: Yes Bipolar Disorder: Yes Anxiety: Yes Depression: Yes Cancer: No Cardiovascular Problems: No Diabetes: No Diminished Hearing: No Headaches: No Psychiatric: Yes (SCHIZO, BIPOLAR, ANXIETY) Respiratory: Yes (ASTHMA) Immunizations Current: Yes Schizophrenia: Yes Seizures: No Past Surgical History Eye Surgery: Yes (LEFT EYE) Other Surgery: Yes (SEE JPOD NOTES) Social History Alcohol Use: No Tobacco Use: Yes Substance Use: Yes (METH) Allergies-Medications (Allergen,Severity, Reaction): Coded Allergies: milk (Unverified Allergy, Severe, 06/28/17) lactose (Unverified Allergy, Unknown, 06/28/17) Lactose Intollerant per paperwork from [facility]. Uncoded Allergies: Fish (Allergy, Unknown, 06/11/16) No Fish, per paperwork sent by [facility]. Reported Meds & Prescriptions Reported Meds & Active Scripts Active Zyprexa (Olanzapine) 20 Mg Tab 20 Mg PO HS 30 Days Reported Ativan (Lorazepam) 1 Mg Tab 1 Mg PO DAILY PRN Zyprexa (Olanzapine) 20 Mg Tab 20 Mg PO DAILY Review of Systems Except as stated in HPI: all other systems reviewed are Neg General / Constitutional: No: Fever Eyes: No: Visual changes HENT: No: Headaches Cardiovascular: No: Chest Pain or Discomfort Respiratory: No: Shortness of Breath Gastrointestinal: No: Abdominal Pain Genitourinary: No: Dysuria Musculoskeletal: No: Pain Skin: No Rash Neurologic: No: Weakness Psychiatric: Positive: Mood Disorder, Substance Abuse, No: Anxiety, Depression , Suicidal Ideations, Homicidal Ideation (History) Endocrine: No: Polydipsia Hematologic/Lymphatic: No: Easy Bruising Physical Exam Narrative GENERAL: Patient appears manic but in no acute distress. SKIN: Warm and dry. Normal color. Normal turgor. HEAD: Atraumatic. Normocephalic. EYES: Pupils equal and round. No scleral icterus. No injection or drainage. ENT: No nasal bleeding or discharge. Mucous membranes pink and moist. Pharynx is clear. Airway is patent. NECK: Trachea midline. Supple and nontender. CARDIOVASCULAR: Regular rate and rhythm. RESPIRATORY: No accessory muscle use. Clear to auscultation. Breath sounds equal bilaterally. GASTROINTESTINAL: Abdomen soft, non-tender, nondistended. Hepatic and splenic margins not palpable. MUSCULOSKELETAL: Extremities without clubbing, cyanosis, or edema. No obvious deformities. NEUROLOGICAL: Awake and alert. No obvious cranial nerve deficits. Motor grossly within normal limits. Five out of 5 muscle strength in the arms and legs. Normal speech. PSYCHIATRIC: Patient appears manic with mild pressured speech, however he is alert and oriented 3, and able to contract for safety. Data Data Last Documented VS Vital Signs Date Time Temp Pulse Resp B/P (MAP) Pulse Ox O2 Delivery O2 Flow Rate FiO2 10/07/17 17:41 98.9 105 20 141/64 (89) 98 MDM Medical Decision Making Medical Screen Exam Complete: Yes Emergency Medical Condition: Yes Differential Diagnosis History of bipolar. Manic. Need for medication. Narrative Course Patient contracts for safety, and [place] [facility] [place] Patient is given 10 mg Zyprexa IM. Patient is to follow-up with Kamaljit Melendez tomorrow for his medication refill. Recommend regular follow-up with [facility] for his ongoing psychiatric issues. Patient can return if symptoms worsen as discussed. Diagnosis Primary Impression: Bipolar I disorder with millie Referrals: [facility] Patient Instructions: Bipolar Disorder (ED), General Instructions Additional Instructions: Patient contracts for safety, and [place] [facility] [place] Patient is given 10 mg Zyprexa IM. Patient is to follow-up with Kamaljit Melendez tomorrow for his medication refill. Recommend regular follow-up with [facility] for his ongoing psychiatric issues. Patient can return if symptoms worsen as discussed. Med/Other Pt SpecificInfo: No Meds Exist/No RX given Disposition: 01 DISCHARGE HOME Condition: Stable Blake Calle October 07, 2017 18:06
== END 2017-10-07 18:30 | disposition home or self-care (01) ==
LOC: NEPD 17:36
DX: F31.9 Bipolar disorder, unspecified (principal); Z72.0 Tobacco use
CPT/HCPCS: 96372